=== PATIENT | female | born 1970 | race Hispanic/Latino ===

== ENCOUNTER → 2020-12-19 | Outpatient (CLI) | payer SELFPAY | END | disposition home or self-care (01) | LOC: DTH 10:22 | PROVIDERS: ATTEND Surgery | DX: I10 Essential (primary) hypertension (principal); K21.9 Gastro-esophageal reflux disease without esophagitis; K76.0 Fatty (change of) liver, not elsewhere classified | CPT/HCPCS: 97802 ==

== ENCOUNTER 2021-10-25 09:00 | Inpatient (IN) | payer SELFPAY ==
[~2021-10-25] VITALS: Ht 157.5 cm; Wt 119.2 kg
[2021-10-25 10:33] LABS: BASOPHILS % (AUTO) 0.4 % (0.0-5.0); EOSINOPHILS % (AUTO) 2.1 % (0.0-8.0); HEMATOCRIT 42.9 % (36-48); LYMPHOCYTES % (AUTO) 20.9 % (21.0-51.0); MEAN CORPUSCULAR HEMOGLOBIN 28.6 pg (27.0-33.0); MEAN CORPUSCULAR HGB CONC 31.7 g/dL (32.0-36.0); MEAN CORPUSCULAR VOLUME 90.1 fL (79-99); MONOCYTES % (AUTO) 6.5 % (3.0-13.0); NEUTROPHILS % (AUTO) 69.4 % (40.0-77.0); PLATELET COUNT (AUTO) 274 K/uL (130-400); RED BLOOD CELL COUNT(AUTO) 4.76 MIL/uL (4.00-5.50); WHITE BLOOD COUNT (AUTO) 9.1 K/uL (4.8-10.8)
[2021-10-25 10:40] LABS: CREATININE 0.8 mg/dL (0.5-1.5); POTASSIUM 3.4 mmol/L (3.5-5.1)
[2021-10-31 12:44] VITALS: BP 119/58
[2021-10-31] MEDS ORDERED: PROG100C11 PO (13:05)
[2021-10-31] MEDS ORDERED: LOSA1TAB54 PO (13:05)
[2021-11-01] VITALS (24 sets, daily range): BP systolic 82–178; BP diastolic 40–98
[2021-11-01] MEDS ORDERED: CEFOXITIN SODIUM 2 GM VIAL ONE (08:29)
[2021-11-01] MEDS ORDERED: HEPARIN 5,000 UNIT VIAL ONE (08:29)
[2021-11-01] MEDS ORDERED: LACTATED RINGERS 1000ML 1,000 ML IV ONE ×2 (08:29→17:03)
[2021-11-01] MEDS ORDERED: BUPIVACAINE/EPI/PF 0.5% 30ML VIAL IJ ONE (09:25)
[2021-11-01] MEDS ORDERED: METHYLENE BLUE 5 MG/ML AMP ONE (09:25)
[2021-11-01] MEDS ORDERED: PROPOFOL 10 MG/ML 20ML VIAL IV ONE (09:35)
[2021-11-01] MEDS ORDERED: MIDAZOLAM HCL 1 MG/ML 2ML VIAL ONE ×2 (09:35→11:56)
[2021-11-01] MEDS ORDERED: ROCURONIUM 10MG/1ML SYR 10 MG/ML ML ONE ×2 (09:35→11:00)
[2021-11-01] MEDS ORDERED: ONDANSETRON 4MG INJ ONE (09:35)
[2021-11-01] MEDS ORDERED: LIDOCAINE PF 100MG/5ML (2%) SYRINGE 5ML ONE (09:35)
[2021-11-01] MEDS ORDERED: FENTANYL CITRATE PF 50 MCG/1 ML 2ML VIAL ONE (09:36)
[2021-11-01] MEDS ORDERED: KETAMINE HCL 100 MG/ML 5ML VIAL IJ ONE (09:42)
[2021-11-01] MEDS ORDERED: DEXMEDETOMIDINE HCL 200 MCG/2 ML VIAL IV ONE (09:42)
[2021-11-01] MEDS ORDERED: SCOPOLAMINE HYDROBROMIDE 1 EACH ADH..PATCH TD ONE (09:55)
[2021-11-01] MEDS ORDERED: METHYLENE BLUE 5 MG/ML AMP IJ ONE (10:40)
[2021-11-01] MEDS ORDERED: NEOSTIGMINE 5MG/5ML SYR IV ONE (10:48)
[2021-11-01] MEDS ORDERED: GLYCOPYRROLATE 1 MG/5 ML SYRINGE ONE (10:48)
[2021-11-01] MEDS ORDERED: HYDROMORPHONE PCA 10 MG/50 ML 50 ML IV PRN (12:00)
[2021-11-01] MEDS ORDERED: KETOROLAC 30MG VIAL (30MG/ML) IV PRN (12:00)
[2021-11-01] MEDS: D5LR-20 MEQ KCL 1000 ML 1,000 ML IV SCH ×2 (12:00→17:42)
[2021-11-01] MEDS ORDERED: PROCHLORPERAZINE 10MG/2ML INJ IV PRN (12:00)
[2021-11-01] MEDS: INSULIN HUMULIN R 100 UNIT/ML 3ML SQ SCH ×2 (16:30→21:00)
[2021-11-01] MEDS ORDERED: MEPERIDINE-PF 25 MG/ML SYG IV PRN (17:30)
[2021-11-01] MEDS ORDERED: PROMETHAZINE HCL 25 MG/ML 1ML AMPULE IM PRN ×4 (17:30)
[2021-11-01] MEDS ORDERED: LACTATED RINGERS 1000ML 1,000 ML IV SCH (17:30)
[2021-11-01] MEDS ORDERED: MORPHINE 4 MG SYG IM PRN (17:30)
[2021-11-01] MEDS ORDERED: MORPHINE 2 MG SYG IM PRN ×2 (17:30)
[2021-11-01] MEDS ORDERED: HYDROMORPHONE-NS 0.2MG/ML 50ML PCA CASSETTE IV SCH (17:30)
[2021-11-01] MEDS ORDERED: APAP/CODEINE 120/12MG 5ML PO PRN (20:00)
[2021-11-01] MEDS ORDERED: PROGESTERONE MICRONIZED 100 MG PO SCH (21:00)
[2021-11-01] MEDS: FAMOTIDINE 20MG VIAL IV SCH (21:18)
[2021-11-01] MEDS: HEPARIN 5,000 UNIT VIAL SQ SCH (21:18)
[2021-11-02] VITALS: BP 126/67
[2021-11-02] MEDS: D5LR-20 MEQ KCL 1000 ML 1,000 ML IV SCH ×3 (00:49→13:55)
[2021-11-02 04:00] VITALS: BP 127/74
[2021-11-02] MEDS: INSULIN HUMULIN R 100 UNIT/ML 3ML SQ SCH ×2 (06:03→11:30)
[2021-11-02 07:27] VITALS: BP 153/75
[2021-11-02] MEDS ORDERED: LOSARTAN 100 MG TABLET PO SCH (09:00)
[2021-11-02] MEDS ORDERED: HYDROCHLOROTHIAZIDE 25 MG TABLET PO SCH (09:00)
[2021-11-02] MEDS: FAMOTIDINE 20MG VIAL IV SCH (10:18)
[2021-11-02] MEDS: HEPARIN 5,000 UNIT VIAL SQ SCH (10:29)
[2021-11-02 11:10] VITALS: BP 134/72
== END 2021-11-02 14:00 | disposition home or self-care (01) | DRG 621 ==
LOC: EDSTATUS 11:00 → DAHIP 11-01 07:23 → 4CH 11-01 12:44
PROVIDERS: ADMIT Surgery; ATTEND Surgery
PROC: 3E0T3BZ Introduction of Anesthetic Agent into Peripheral Nerves and Plexi, Percutaneous Approach (ICD-10-PCS; 2021-11-01)
PROC: 0DB64Z3 Excision of Stomach, Percutaneous Endoscopic Approach, Vertical (ICD-10-PCS; principal; 2021-11-01 10:38)
DX: E66.01 Morbid (severe) obesity due to excess calories (principal); I10 Essential (primary) hypertension; Z68.42 Body mass index [BMI] 45.0-49.9, adult; Z20.822 Contact with and (suspected) exposure to COVID-19
CPT/HCPCS: 36415; 80048; 82948; 84703; 85025; 87635; 93005; 94760; A4606; G0378; J0694; J1170; J1644; J2001; J2250; J2405; J2704; J2710; J3010; J3480; J3490; J7120; Q9968